=== PATIENT | female | born 1995 | race Caucasian/White ===

== ENCOUNTER 2021-11-03 09:19 | Outpatient (CLI) | payer BC | END 2021-11-03 09:20 | disposition home or self-care (01) | LOC: BICRAD 09:19 | PROVIDERS: ATTEND Family Medicine | DX: S13.4XXA Sprain of ligaments of cervical spine, initial encounter (principal) | CPT/HCPCS: 72050 ==

== ENCOUNTER 2021-12-08 10:50 | Outpatient (CLI) | payer BC | END 2021-12-08 10:51 | disposition home or self-care (01) | LOC: MRI 10:50 | PROVIDERS: ATTEND Family Medicine | DX: M54.2 Cervicalgia (principal); G43.911 Migraine, unspecified, intractable, with status migrainosus | CPT/HCPCS: 72141 ==

== ENCOUNTER 2022-02-15 10:00 | Emergency (ER) | payer BC | END 2022-02-15 11:24 | disposition home or self-care (01) | LOC: ERS 10:00 | DX: M54.12 Radiculopathy, cervical region (principal); R07.89 Other chest pain; Z87.891 Personal history of nicotine dependence | CPT/HCPCS: 93005 ==